=== PATIENT | male | born 1950 | race Caucasian/White ===

== ENCOUNTER 2019-01-05 12:18 | Emergency (ER) | payer MEDICARE ==
--- NOTE | 2019-01-05 12:53 | Emergency Department Report ---
Blank Doc - Documentation Documentation: 68 y o male presents to Ed cc of diarhea s/p taking claritin and naproxen recen tly prescribed by pcp on thursday staes took one yesterday and all night he has been having watery loose stools no abd pain PMH: htn Daughter on phone as gathering worker
[2019-01-05 13:55] LABS: Basophils % (Auto) 0.4 % (0.0-1.8); Eosinophils % (Auto) 0.1 % (0.0-4.3); Hematocrit 42.3 % (35.5-45.6); Hemoglobin 14.3 gm/dl (11.8-15.2); Lymphocytes # (Auto) 0.9 K/mm3 (1.2-5.4); Lymphocytes % (Auto) 8.3 % (13.4-35.0); Mean Corpuscular HGB Conc 34 % (32-34); Mean Corpuscular Volume 94 fl (84-94); Monocytes # (Auto) 0.9 K/mm3 (0.0-0.8); Monocytes % (Auto) 8.4 % (0.0-7.3); Platelet Count 209 K/mm3 (140-440); Red Blood Count 4.53 M/mm3 (3.65-5.03); Red Cell Distribution Width 13.2 % (13.2-15.2)
[2019-01-05 14:12] LABS: Calcium 9.8 mg/dL (8.4-10.2)
[2019-01-05] MEDS ORDERED: NACL 0.9% 1000 ML 1,000 ML IV ONE (18:26)
--- NOTE | 2019-01-05 18:35 | Emergency Department Report ---
HPI - General Chief Complaint: Nausea/Vomiting/Diarrhea Time Seen by Provider: 01/05/19 12:48 - HPI HPI: Room 19 The patient is a 68-year-old male presenting with chief complaint of diarrhea. Family states 2 days ago the patient claimed of chills and body aches and then last night developed diarrhea. Patient's has had frequent diarrhea stating he's not approximate 7 times since this morning. Patient denies nausea vomiting or abdominal pain. When asked if he has been on antibiotics recently the patient states approximately 3 weeks ago he was given an injection by primary physician for left ear irritation but he does not know what type of medication it was. The patient states he was also given an antibiotic ointment. Patient denies sick contacts, fever, cough or rhinorrhea. Patient admits to body aches. Location: Gastrointestinal system Duration: [See above] Quality: [See above] Severity: [See above] Modifying factors: [see above] Context: [see above] Mode of transportation: [not driving] ED Past Medical Hx - Past Medical History Previous Medical History?: No Hx Hypertension: Yes - Family History Family history: no significant - Social History Smoking Status: Current Every Day Smoker (1/2 pack per day) - Medications Home Medications: Home Medications Medication Instructions Recorded Confirmed Last Taken Type levoFLOXacin [Levaquin] 750 mg PO QDAY #10 tablet 01/05/19 Unknown Rx metroNIDAZOLE [Flagyl] 500 mg PO Q8HR #21 tablet 01/05/19 Unknown Rx ED Review of Systems ROS: Stated complaint: DIARRHEA Other details as noted in HPI Constitutional: chills. denies: fever Eyes: denies: eye pain ENT: denies: throat pain Respiratory: no symptoms reported Cardiovascular: denies: chest pain Endocrine: no symptoms reported Gastrointestinal: diarrhea. denies: abdominal pain, nausea, vomiting Genitourinary: denies: dysuria Neurological: denies: headache Physical Exam - Physical Exam Vital Signs: Vital Signs 01/05/19 12:49 Temperature 98.5 F Pulse Rate 101 H Respiratory 16 Rate Blood Pressure 97/73 O2 Sat by Pulse 98 Oximetry Physical Exam: GENERAL: The patient is well-developed well-nourished male lying on stretcher not appearing to be in acute distress. [] HEENT: Normocephalic. Atraumatic. Extraocular motions are intact. Patient has moist mucous membranes. NECK: Supple. Trachea midline CHEST/LUNGS: Clear to auscultation. There is no respiratory distress noted. HEART/CARDIOVASCULAR: Regular. There is no tachycardia. There is no gallop rub or murmur. ABDOMEN: Abdomen is soft, nontender. Patient has normal bowel sounds. There is no abdominal distention. SKIN: There is no rash. There is no edema. There is no diaphoresis. NEURO: The patient is awake, alert, and oriented. The patient is cooperative. The patient has normal speech MUSCULOSKELETAL: There is no evidence of acute injury. ED Course Vital Signs 01/05/19 12:49 Temperature 98.5 F Pulse Rate 101 H Respiratory 16 Rate Blood Pressure 97/73 O2 Sat by Pulse 98 Oximetry - Reevaluation(s) Reevaluation #1: 01/05/19 22:21 Patient states he feels much improved and is ready to go home ED Medical Decision Making - Lab Data Result diagrams: 01/05/19 13:27 01/05/19 13:27 Laboratory Tests 01/05/19 01/05/19 01/05/19 12:29 13:27 13:27 WBC 11.1 H RBC 4.53 Hgb 14.3 Hct 42.3 MCV 94 MCH 32 MCHC 34 RDW 13.2 Plt Count 209 Lymph % (Auto) 8.3 L Elbert % (Auto) 8.4 H Eos % (Auto) 0.1 Baso % (Auto) 0.4 Lymph # 0.9 L Elbert # 0.9 H Eos # 0.0 Baso # 0.0 Seg Neutrophils % 82.8 H Seg Neutrophils # 9.2 H Sodium 139 Potassium 3.4 L Chloride 99.4 Carbon Dioxide 23 Anion Gap 20 BUN 32 H Creatinine 1.6 H Estimated GFR 43 BUN/Creatinine Ratio 20 Glucose 106 H POC Glucose 103 Calcium 9.8 Total Bilirubin 0.30 AST 22 ALT 16 Alkaline Phosphatase 62 Total Protein 7.7 Albumin 4.0 Albumin/Globulin Ratio 1.1 Lipase Urine Color Urine Turbidity Urine pH Ur Specific Savage Urine Protein Urine Glucose (UA) Urine Ketones Urine Blood Urine Nitrite Urine Bilirubin Urine Urobilinogen Ur Leukocyte Esterase Urine WBC (Auto) Urine RBC (Auto) U Epithel Cells (Auto) Urine Mucus 01/05/19 01/05/19 13:27 18:44 WBC RBC Hgb Hct MCV MCH MCHC RDW Plt Count Lymph % (Auto) Elbert % (Auto) Eos % (Auto) Baso % (Auto) Lymph # Elbert # Eos # Baso # Seg Neutrophils % Seg Neutrophils # Sodium Potassium Chloride Carbon Dioxide Anion Gap BUN Creatinine Estimated GFR BUN/Creatinine Ratio Glucose POC Glucose Calcium Total Bilirubin AST ALT Alkaline Phosphatase Total Protein Albumin Albumin/Globulin Ratio Lipase 58 Urine Color Yellow Urine Turbidity Clear Urine pH 5.0 Ur Specific Savage 1.013 Urine Protein <15 mg/dl Urine Glucose (UA) Neg Urine Ketones Neg Urine Blood Sm Urine Nitrite Neg Urine Bilirubin Neg Urine Urobilinogen < 2.0 Ur Leukocyte Esterase Neg Urine WBC (Auto) < 1.0 Urine RBC (Auto) 1.0 U Epithel Cells (Auto) < 1.0 Urine Mucus Few - Radiology Data Radiology results: report reviewed (CT abdomen and pelvis), image reviewed (CT abdomen and pelvis) [facility] [address] [place] [address] Cat Scan Report Signed Patient: RAY LAUGHLIN MR#: [id number] 2 : 1950 Acct:[id number] Age/Sex: 68 / M ADM Date: 01/05/19 Loc: ED Attending Dr: Ordering Physician: FREDO MOSELEY MD Date of Service: 01/05/19 Procedure(s): CT abdomen pelvis wo con Accession Number(s): [id number] cc: FREDO MOSELEY MD PROCEDURE: CT ABDOMEN PELVIS WO CON TECHNIQUE: Computerized axial tomography of the abdomen and pelvis was performed without intravenous contrast. This study is performed without intravascular contrast material and its sensitivity for abdominal and pelvic pathology, including neoplasms, inflammation, abscess, free fluid, thrombosis, arterial dissection and infarction, is reduced compared with a contrast enhanced study. CT DOSE LENGTH PRODUCT: 565.2 mGycm HISTORY: diarrhea, body aches COMPARISONS: None . FINDINGS: Visualized lower thorax: No significant abnormality. Liver: Normal size and attenuation. Bilobed low-density cyst (or 2 adjacent small cysts) in the dome of the liver measures 2.6 x 1.5 x 2.5 cm. A smaller cyst is noted centrally in the right lobe. Spleen: Normal size and attenuation. Gallbladder and biliary system: Normal. Pancreas: Normal. Adrenals: Normal. Kidneys: Normal. GI tract: There is concentric wall thickening in the distal half of the transverse colon and proximal half of the descending colon with subtle stranding in the surrounding fat . Findings are consistent with an inflammatory process given the length of segment involved. C. difficile colitis is most likely but Crohn's disease is included in the differential. No significant diverticular disease is present in the colon. In addition, there is wall thickening of the ascending colon and cecum involving only a short segment. Given the presence of inflammation elsewhere, C. difficile colitis is most likely. However, this should be followed to resolution to exclude neoplasm. The appendix is upper limits normal in caliber measuring 6 mm without wall thickening or surrounding inflammation. Lymph nodes and mesentery: Normal. Vasculature: Moderate calcification of aorta is noted. Bladder: Normal. Reproductive organs: Prostate is mildly enlarged. Peritoneum: No free fluid. Musculoskeletal structures: S-shaped scoliosis is present in the thoracolumbar spine. There is associated multilevel degenerative disc narrowing and large spurs along the inner curvature to the right at L2-L3. Lateral spondylolysis at L5 is noted. This is associated with a grade 2 anterolisthesis measuring 11.2 mm of L5 on S1. Other: None. IMPRESSION: 1. Concentric wall thickening of a long segment involving the distal transverse colon and proximal descending colon. Findings are suspicious for inflammation such as C. difficile colitis or Crohn's disease. Diverticulitis is not likely as no diverticuli are visualized in the colon 2. Short segment of wall thickening involving the ascending colon and cecum. Findings are likely inflammatory given the findings elsewhere the colon. However, findings should be followed to resolution to exclude neoplasm 3. Mild prostate enlargement 4. Hypodense foci in the liver, likely cysts This document is electronically signed by Diana Childers MD., January 05 2019 09:52:42 PM ET Transcribed By: [facility] Dictated By: DIANA CHILDERS MD Electronically Authenticated By: DIANA CHILDERS MD Signed Date/Time: 01/05/192154 DD/ 32 TD/TT: 01/05/192132 - Differential Diagnosis enteritis, small bowel instruction, dehydration Critical care attestation.: If time is entered above; I have spent that time in minutes in the direct care of this critically ill patient, excluding procedure time. ED Disposition Clinical Impression: Colitis, Diarrhea Disposition: DC- TO HOME OR SELFCARE Is pt being admited?: No Does the pt Need Aspirin: No Condition: Stable Instructions: Infectious Colitis (ED) Additional Instructions: Return to the emergency department immediately should you develop worsening symptoms, fever, inability to tolerate food or liquid or any other concerns. Prescriptions: metroNIDAZOLE [Flagyl] 500 mg PO Q8HR #21 tablet levoFLOXacin [Levaquin] 750 mg PO QDAY #10 tablet Referrals: JERRY REYES CHI, MD [Primary Care Provider] - 3-5 Days FORD LOUISE MD [Staff Physician] - 3-5 Days (Dr. Louise is a gastroenter ologist. Please follow up with him for further evaluation) Time of Disposition: 22:25
[2019-01-05 19:22] LABS: Bilirubin,Urine NEG (Negative); Blood,Urine SM (Negative); Color,Urine Yellow (Yellow); Mucus,Urine FEW /HPF; Protein,Urine <15 mg/dL mg/dL (Negative); Urobilinogen,Urine < 2.0 mg/dL (<2.0); WBC,Urine < 1.0 /HPF (0.0-6.0)
[2019-01-05 21:28] VITALS: BP 131/74
--- NOTE | 2019-01-05 21:55 | Cat Scan Report ---
PROCEDURE: CT ABDOMEN PELVIS WO CON TECHNIQUE: Computerized axial tomography of the abdomen and pelvis was performed without intravenous contrast. This study is performed without intravascular contrast material and its sensitivity for ab dominal and pelvic pathology, including neoplasms, inflammation, abscess, free fluid, thrombosis, art erial dissection and infarction, is reduced compared with a contrast enhanced study. CT DOSE LENGTH PRODUCT: 565.2 mGycm HISTORY: diarrhea, body aches COMPARISONS: None . FINDINGS: Visualized lower thorax: No significant abnormality. Liver: Normal size and attenuation. Bilobed low-density cyst (or 2 adjacent small cysts) in the dome of the liver measures 2.6 x 1.5 x 2.5 cm. A smaller cyst is noted centrally in the right lobe. Spleen: Normal size and attenuation. Gallbladder and biliary system: Normal. Pancreas: Normal. Adrenals: Normal. Kidneys: Normal. GI tract: There is concentric wall thickening in the distal half of the transverse colon and proxima l half of the descending colon with subtle stranding in the surrounding fat . Findings are consistent with an inflammatory process given the length of segment involved. C. difficile colitis is most like ly but Crohn's disease is included in the differential. No significant diverticular disease is presen t in the colon. In addition, there is wall thickening of the ascending colon and cecum involving only a short segment. Given the presence of inflammation elsewhere, C. difficile colitis is most likely. However, this should be followed to resolution to exclude neoplasm. The appendix is upper limits norm al in caliber measuring 6 mm without wall thickening or surrounding inflammation. Lymph nodes and mesentery: Normal. Vasculature: Moderate calcification of aorta is noted. Bladder: Normal. Reproductive organs: Prostate is mildly enlarged. Peritoneum: No free fluid. Musculoskeletal structures: S-shaped scoliosis is present in the thoracolumbar spine. There is associ ated multilevel degenerative disc narrowing and large spurs along the inner curvature to the right at L2-L3. Lateral spondylolysis at L5 is noted. This is associated with a grade 2 anterolisthesis measu ring 11.2 mm of L5 on S1. Other: None. IMPRESSION: 1. Concentric wall thickening of a long segment involving the distal transverse colon and proximal de scending colon. Findings are suspicious for inflammation such as C. difficile colitis or Crohn's dise ase. Diverticulitis is not likely as no diverticuli are visualized in the colon 2. Short segment of wall thickening involving the ascending colon and cecum. Findings are likely infl ammatory given the findings elsewhere the colon. However, findings should be followed to resolution t o exclude neoplasm 3. Mild prostate enlargement 4. Hypodense foci in the liver, likely cysts This document is electronically signed by Diana Childers MD., January 05 2019 09:52:42 PM ET
== END 2019-01-05 23:02 | disposition home or self-care (01) ==
LOC: ED 12:18
DX: K52.9 Noninfective gastroenteritis and colitis, unspecified (principal); I10 Essential (primary) hypertension; F17.200 Nicotine dependence, unspecified, uncomplicated
CPT/HCPCS: 36415; 74176; 80053; 81001; 82962; 83690; 85025; 96360; 99284; J7030

== ENCOUNTER 2020-10-05 17:51 | Emergency (ER) | payer OTHER, MEDICARE ==
--- NOTE | 2020-10-05 18:48 | Event Note ---
ED Screening Note ED Screening Note: RLQ abd pain that began at 10 AM today +nausea thought he was constipated took a laxative and was able to have BM PMHx HTN, HLD no allergies to meds denies any surgeries This initial assessment/diagnostic orders/clinical plan/treatment(s) is/are subject to change based on patients health status, clinical progression and re- assessment by fellow clinical providers in the ED. Further treatment and workup at subsequent clinical providers discretion. Patient/guardian urged not to elope from the ED as their condition may be serious if not clinically assessed and managed. Initial orders include: labs, CT, UA
[2020-10-05 19:15] LABS: Bilirubin,Urine NEG (Negative); Blood,Urine NEG (Negative); Color,Urine Yellow (Yellow); Mucus,Urine FEW /HPF; Protein,Urine <15 mg/dL mg/dL (Negative); Urobilinogen,Urine < 2.0 mg/dL (<2.0); WBC,Urine < 1.0 /HPF (0.0-6.0)
[2020-10-05 19:41] LABS: Basophils # (Auto) 0.1 K/mm3 (0.0-0.1); Basophils % (Auto) 1.1 % (0.0-1.8); Eosinophils # (Auto) 0.4 K/mm3 (0.0-0.4); Eosinophils % (Auto) 3.8 % (0.0-4.3); Hematocrit 43.5 % (35.5-45.6); Hemoglobin 14.5 gm/dl (11.8-15.2); Lymphocytes % (Auto) 18.2 % (13.4-35.0); Mean Corpuscular HGB Conc 34 % (32-34); Mean Corpuscular Volume 96 fl (84-94); Monocytes # (Auto) 0.8 K/mm3 (0.0-0.8); Monocytes % (Auto) 7.3 % (0.0-7.3); Platelet Count 218 K/mm3 (140-440); Red Blood Count 4.54 M/mm3 (3.65-5.03); Red Cell Distribution Width 12.8 % (13.2-15.2)
[2020-10-05 19:56] LABS: Alanine Aminotransferase 21 units/L (7-56); Albumin 4.7 g/dL (3.9-5); BUN/Creatinine Ratio 25; Blood Urea Nitrogen 25 mg/dL (9-20); Calcium 9.9 mg/dL (8.4-10.2); Hemolysis Index 12
[2020-10-05] MEDS ORDERED: ONDANSETRON 4 MG/2 ML INJ IV ONE (21:28)
[2020-10-05] MEDS ORDERED: MORPHINE 2 MG/1 ML INJ IV ONE (21:28)
[2020-10-05] MEDS ORDERED: FAMOTIDINE 20 MG/2 ML INJ IV ONE ×2 (21:29→21:39)
[2020-10-05] MEDS ORDERED: MORPHINE 2 MG/1 ML INJ ONE (21:39)
[2020-10-05] MEDS ORDERED: ONDANSETRON 4 MG/2 ML INJ ONE (21:39)
--- NOTE | 2020-10-05 22:27 | Cat Scan Report ---
CT ABDOMEN AND PELVIS WITH CONTRAST INDICATION / CLINICAL INFORMATION: RLQ abd pain, nausea. TECHNIQUE: Axial CT images were obtained through the abdomen and pelvis following the administration of intraven ous contrast. All CT scans at this location are performed using CT dose reduction for ALARA by means of automated exposure control. COMPARISON: CT abdomen/pelvis dated 01/05/2019. FINDINGS: LOWER CHEST: No significant abnormality. LIVER: Multiple hypoattenuating cysts are again seen throughout the liver. GALLBLADDER: No significant abnormality. PANCREAS: No significant abnormality. SPLEEN: No significant abnormality. ADRENALS: No significant abnormality. KIDNEYS / URETERS: No significant abnormality. URINARY BLADDER: No significant abnormality. REPRODUCTIVE ORGANS: Mild prostatomegaly. STOMACH / SMALL BOWEL: No significant abnormality. COLON: There is mild mucosal thickening and subtle inflammation involving the proximal transverse col on. APPENDIX: No significant abnormality. PERITONEUM: No free fluid. No free air. No fluid collection. LYMPH NODES: No significant adenopathy. AORTA / ARTERIES: Moderate atherosclerotic calcification without acute abnormality. IVC / VEINS: No significant abnormality. SKELETAL SYSTEM: Grade 2 anterolisthesis at L5-S1. Thoracolumbar S-shaped scoliosis. ADDITIONAL FINDINGS: None. IMPRESSION: 1. Mild mucosal thickening and subtle inflammatory change involving the proximal transverse colon, co mpatible with mild colitis. Infectious and inflammatory etiologies should be considered. 2. Chronic findings as detailed above. Signer Name: Elmo Thomas MD Signed: 10/05/2020 10:22 PM Workstation Name: [id number]
[2020-10-05] MEDS ORDERED: levoFLOXacin 500 MG TAB PO ONE (22:33)
[2020-10-05] MEDS ORDERED: metroNIDAZOLE/NS 500 MG/100 ML 500 MG/100 ML BAG IV ONE ×2 (22:33→23:08)
[2020-10-05] MEDS ORDERED: levoFLOXacin 500 MG TAB ONE (23:07)
--- NOTE | 2020-10-06 00:06 | Emergency Department Report ---
ED Abdominal Pain HPI - General Chief Complaint: Abdominal Pain Stated Complaint: ABD/RT SIDE PAIN Time Seen by Provider: 10/05/20 18:44 Source: patient Mode of arrival: Ambulatory Limitations: No Limitations - History of Present Illness Initial Comments: Patient is a 70-year-old [place] male with a history of hypertension and hyperlipidemia who presents to the ED with complaint of acute onset persistent severe right lower quadrant abdominal pain with diarrhea for the last 12 hours. Patient states that he had been taking some supplements at home in order to "detox" for the last 1 week. Patient states that his symptoms began about 12 hours ago and he has had up to 4 episodes of diarrhea. Patient denies fever, chills, nausea, vomiting, dysuria, urinary frequency and urgency, chest pain or shortness of breath, hematuria, testicular pain, low back pain, dizziness, headache or traumatic injury and heavy lifting, hematochezia or hematemesis or constipation. MD Complaint: abdominal pain (RLQ abdominal pain), other (Diarrhea) -: Sudden, hour(s) (12) Location: RLQ Radiation: none Migration to: no migration Severity: moderate Severity scale (0 -10): 5 Quality: cramping, aching, sharp Consistency: constant Improves With: nothing Worsens With: nothing Associated Symptoms: denies other symptoms, diarrhea, anorexia. denies: nausea, vomiting, fever, chills, constipation, dysuria, hematemesis, hematochezia, melena, hematuria, syncope - Related Data Previous Rx's Medication Instructions Recorded Last Taken Type levoFLOXacin [Levaquin] 750 mg PO QDAY #10 tablet 01/05/19 Unknown Rx metroNIDAZOLE [Flagyl] 500 mg PO Q8HR #21 tablet 01/05/19 Unknown Rx Ciprofloxacin HCl 500 mg PO Q12H #20 tablet 10/06/20 Unknown Rx Dicyclomine [Bentyl] 20 mg PO Q6H PRN #30 tablet 10/06/20 Unknown Rx Ondansetron [Zofran Odt] 4 mg PO Q6HR PRN #15 tab.rapdis 10/06/20 Unknown Rx metroNIDAZOLE [Flagyl] 500 mg PO Q8HR #30 tablet 10/06/20 Unknown Rx Allergies Allergy/AdvReac Type Severity Reaction Status Date / Time No Known Allergies Allergy Unverified 01/05/19 12:53 ED Review of Systems ROS: Stated complaint: ABD/RT SIDE PAIN Other details as noted in HPI Constitutional: denies: chills, fever Eyes: denies: eye pain, eye discharge, vision change ENT: denies: ear pain, throat pain Respiratory: denies: cough, shortness of breath, wheezing Cardiovascular: denies: chest pain, palpitations Endocrine: no symptoms reported Gastrointestinal: abdominal pain (Right lower quadrant pain), diarrhea. denies: nausea Genitourinary: denies: urgency, dysuria Musculoskeletal: denies: back pain, joint swelling, arthralgia Skin: denies: rash, lesions Neurological: denies: headache, weakness, paresthesias Psychiatric: denies: anxiety, depression Hematological/Lymphatic: denies: easy bleeding, easy bruising ED Past Medical Hx - Past Medical History Previous Medical History?: Yes Hx Hypertension: Yes Hx CVA: No Hx Heart Attack/AMI: No Hx Congestive Heart Failure: No Hx Diabetes: No Hx Deep Vein Thrombosis: No Hx Pulmonary Embolism: No Hx GERD: No Hx Liver Disease: No Hx Renal Disease: No Hx Sickle Cell Disease: No Hx Arthritis: No Hx Headaches / Migraines: No Hx Seizures: No Hx Kidney Stones: No Hx Psychiatric Treatment: No Hx Asthma: No Hx COPD: No Hx Tuberculosis: No Hx Dementia: No Hx HIV: No Additional medical history: Hyperlipidemia - Surgical History Hx Coronary Stent: No Hx Open Heart Surgery: No Hx Pacemaker: No Hx Internal Defibrillator: No Hx Cholecystectomy: No Hx Appendectomy: No Hx Breast Surgery: No - Social History Smoking Status: Current Every Day Smoker (1/2 pack per day) - Medications Home Medications: Home Medications Medication Instructions Recorded Confirmed Last Taken Type levoFLOXacin [Levaquin] 750 mg PO QDAY #10 tablet 01/05/19 Unknown Rx metroNIDAZOLE [Flagyl] 500 mg PO Q8HR #21 tablet 01/05/19 Unknown Rx Ciprofloxacin HCl 500 mg PO Q12H #20 tablet 10/06/20 Unknown Rx Dicyclomine [Bentyl] 20 mg PO Q6H PRN #30 tablet 10/06/20 Unknown Rx Ondansetron [Zofran Odt] 4 mg PO Q6HR PRN #15 tab.rapdis 10/06/20 Unknown Rx metroNIDAZOLE [Flagyl] 500 mg PO Q8HR #30 tablet 10/06/20 Unknown Rx ED Physical Exam - General Limitations: No Limitations General appearance: alert, in no apparent distress - Head Head exam: Present: atraumatic, normocephalic, normal inspection - Eye Eye exam: Present: normal appearance, PERRL, EOMI Pupils: Present: normal accommodation - ENT ENT exam: Present: normal exam, normal orophraynx, mucous membranes moist, TM's normal bilaterally, normal external ear exam - Neck Neck exam: Present: normal inspection, full ROM - Respiratory Respiratory exam: Present: normal lung sounds bilaterally. Absent: respiratory distress, wheezes, rales, rhonchi, chest wall tenderness, accessory muscle use, prolonged expiratory - Cardiovascular Cardiovascular Exam: Present: regular rate, normal rhythm, normal heart sounds. Absent: systolic murmur, diastolic murmur, rubs, gallop - GI/Abdominal GI/Abdominal exam: Present: soft, tenderness (Palpable right lower quadrant tenderness, no guarding or rebound), normal bowel sounds. Absent: guarding, rebound, rigid, hyperactive bowel sounds, hypoactive bowel sounds, organomegaly - Extremities Exam Extremities exam: Present: normal inspection, full ROM, normal capillary refill - Back Exam Back exam: Present: normal inspection, full ROM. Absent: tenderness, CVA tenderness (R), CVA tenderness (L), muscle spasm, paraspinal tenderness - Neurological Exam Neurological exam: Present: alert, oriented X3, CN II-XII intact, normal gait, reflexes normal - Psychiatric Psychiatric exam: Present: normal affect, normal mood - Skin Skin exam: Present: warm, dry, intact, normal color. Absent: rash ED Course Vital Signs 10/05/20 10/05/20 18:42 22:11 Temperature 98.4 F Pulse Rate 72 Respiratory 20 18 Rate Blood Pressure 169/81 O2 Sat by Pulse 100 Oximetry ED Medical Decision Making - Lab Data Result diagrams: 10/05/20 19:06 10/05/20 19:06 - Radiology Data Radiology results: report reviewed, image reviewed [facility] [address] [place] [address] Cat Scan Report Signed Patient: RAY LAUGHLIN MR#: [id number] 2 : 1950 Acct:[id number] Age/Sex: 70 / M ADM Date: 10/05/20 Loc: ED Attending Dr: Ordering Physician: HARMONY HOFFMANN Date of Service: 10/05/20 Procedure(s): CT abdomen pelvis w con Accession Number(s): [id number] cc: HARMONY HOFFMANN CT ABDOMEN AND PELVIS WITH CONTRAST INDICATION / CLINICAL INFORMATION: RLQ abd pain, nausea. TECHNIQUE: Axial CT images were obtained through the abdomen and pelvis following the administration of intravenous contrast. All CT scans at this location are performed using CT dose reduction for ALARA by means of automated exposure control. COMPARISON: CT abdomen/pelvis dated 01/05/2019. FINDINGS: LOWER CHEST: No significant abnormality. LIVER: Multiple hypoattenuating cysts are again seen throughout the liver. GALLBLADDER: No significant abnormality. PANCREAS: No significant abnormality. SPLEEN: No significant abnormality. ADRENALS: No significant abnormality. KIDNEYS / URETERS: No significant abnormality. URINARY BLADDER: No significant abnormality. REPRODUCTIVE ORGANS: Mild prostatomegaly. STOMACH / SMALL BOWEL: No significant abnormality. COLON: There is mild mucosal thickening and subtle inflammation involving the proximal transverse colon. APPENDIX: No significant abnormality. PERITONEUM: No free fluid. No free air. No fluid collection. LYMPH NODES: No significant adenopathy. AORTA / ARTERIES: Moderate atherosclerotic calcification without acute abnormality. IVC / VEINS: No significant abnormality. SKELETAL SYSTEM: Grade 2 anterolisthesis at L5-S1. Thoracolumbar S-shaped scoliosis. ADDITIONAL FINDINGS: None. IMPRESSION: 1. Mild mucosal thickening and subtle inflammatory change involving the proximal transverse colon, compatible with mild colitis. Infectious and inflammatory etiologies should be considered. 2. Chronic findings as detailed above. Signer Name: Padmini Thomas MD Signed: 10/05/2020 10:22 PM Workstation Name: [id number] Transcribed By: SS Dictated By: PADMINI THOMAS Electronically Authenticated By: PADMINI THOMAS Signed Date/Time: 10/05/202221 DD/ 16 TD/TT: Print - Medical Decision Making This is a 70-year-old [place] male with a history of hypertension and hyperlipidemia who presents to the ED with complaint of acute onset persistent severe right lower quadrant abdominal pain with diarrhea for the last 12 hours. Patient states that he had been taking some supplements at home in order to "detox" for the last 1 week. Patient states that his symptoms began about 12 hours ago and he has had up to 4 episodes of diarrhea. In the ED, patient is alert and oriented x3 and is not in any distress but appears to be in pain. Patient was treated for pain in the ED and also given antiemetics. On reevaluation, patient's pain is well controlled medications. Lab test results were reviewed and are all nonactionable except for BUN of 25 and lipase level of 72. Abdomen pelvis CT scan with contrast showed mild mucosal thickening and subtle inflammatory change involving the proximal transverse colon, compatible with mild colitis. Infectious and inflammatory etiologies should be considered. Patient was also treated in the ED with Flagyl 500 mg IV x1 and Levaquin 500 mg p.o. for colitis. On reevaluation, patient felt better and has not had any diarrhea or nausea and vomiting in the ED. Patient is hemodynamically stable. Patient will discharge home on antibiotics Flagyl, Cipro and Bentyl for pain. Patient was advised to follow-up with his primary care physician in 5 to 7 days for reevaluation or return to the ED immediately if symptoms get worse. - Differential Diagnosis Appendicitis; colitis; UTI; constipation; kidney stone; Critical Care Time: Yes Critical care attestation.: If time is entered above; I have spent that time in minutes in the direct care of this critically ill patient, excluding procedure time. Critical Care Time: 35 minutes ED Disposition Clinical Impression: Acute abdominal pain in right lower quadrant, Diarrhea in adult patient, Acute colitis Disposition: DC-01 TO HOME OR SELFCARE Is pt being admited?: No Does the pt Need Aspirin: No Condition: Stable Instructions: Abdominal Pain, Adult, [id number], Colitis, Diarrhea, Adult, [id number] Additional Instructions: All lab test results were reviewed and are all nonactionable. Abdomen pelvis CT scan with contrast showed mild colitis which is an infection in your colon. Therefore take medications with food, drink plenty of fluids and follow-up with your primary care physician in 5 to 7 days for reevaluation. Return to the ED immediately if symptoms get worse. Prescriptions: Dicyclomine [Bentyl] 20 mg PO Q6H PRN #30 tablet PRN Reason: abdominal pain Ciprofloxacin HCl 500 mg PO Q12H #20 tablet metroNIDAZOLE [Flagyl] 500 mg PO Q8HR #30 tablet Ondansetron [Zofran Odt] 4 mg PO Q6HR PRN #15 tab.rapdis PRN Reason: Nausea Referrals: JERRY REYES CHI, MD [Primary Care Provider] - 3-5 Days Time of Disposition: 00:13 Print Language: SPANISH
[2020-10-06 00:17] VITALS: BP 135/76
== END 2020-10-06 00:25 | disposition home or self-care (01) ==
LOC: ED 17:51
DX: K52.9 Noninfective gastroenteritis and colitis, unspecified (principal); R10.31 Right lower quadrant pain; I10 Essential (primary) hypertension; E78.5 Hyperlipidemia, unspecified; F17.200 Nicotine dependence, unspecified, uncomplicated; Z79.899 Other long term (current) drug therapy
CPT/HCPCS: 36415; 74177; 80053; 81001; 83690; 85025; 96365; 96375; 99284; J2270; J2405; Q9967